=== PATIENT | female | born 1980 | race Caucasian/White ===

== ENCOUNTER 2017-12-01 02:49 | Emergency (ER) | payer OTHER, SELFPAY ==
[2017-12-01 02:59] VITALS: BP 123/82; PULSE 78; RESP 16; TEMP 36.6; O2SAT 97; BMI 38.4
--- NOTE | 2017-12-01 03:21 | ED.DCSUM_ITS ---
- ER Visit Summary Date of Service: 12/01/17 Chief Complaint: Right shoulder pain History of Present Illness: The patient is a 37 F who woke up with right shoulder pain 3 days ago. Patient has worsening pain in the mornings. She tried taking her home medications with minimal relief. She denies any trauma or inciting events. The pain is severe at times and does cause nausea, but otherwise she denies any other associated symptoms. No chest pain or shortness of breath. No weakness. Physical Examination: Vitals unremarkable. Alert and oriented. HEENT exam unremarkable. Neck is nontender. Right trap is slightly tender to palpation. Clavicle nontender. Shoulder and arm otherwise normal. Heart regular. Lungs clear. Skin normal. Pulses strong and equal. Test Results: None indicated Emergency Department Course and Treatment: Patient was treated with Kenalog and Toradol. These have helped in the past. Follow-up with PCP. Treatment Plan: As above Disposition: Discharged Impression: 1. Right shoulder pain This note was generated with [employer] dictation software. It may contain incorrect words, spelling, and punctuation that were not noted in review of the chart prior to signing ED Disposition - Plan for ED Patient: Chief Complaint: Upper Extremity Injury Referrals: Rolf Gutierrez DO [Primary Care Provider] -
[2017-12-01] MEDS: Triamcinolone Acetonide 40 MG/ML Vial IM (03:32)
[2017-12-01] MEDS: Ketorolac 30 MG/ML Syringe IM (03:32)
[2017-12-01 03:55] VITALS: RESP 16
== END 2017-12-01 03:55 | disposition home or self-care (01) ==
PROVIDERS: Emergency Provider Emergency Medicine; Family Provider Student in an Organized Health Care Education/Training Program; PCP Student in an Organized Health Care Education/Training Program
DX: M25.511 Pain in right shoulder (principal); M32.9 Systemic lupus erythematosus, unspecified
CPT/HCPCS: 99281